=== PATIENT | female | born 2000 | race Caucasian/White ===

== ENCOUNTER 2020-01-26 04:22 | Day surgery (SDC) | payer BC, OTHER ==
[2020-01-26] VITALS (8 sets, daily range): BP systolic 85–109; BP diastolic 46–85
[~2020-01-26] VITALS: Ht 157.5 cm; Wt 43.0 kg
--- OUTSIDE RECORDS SUMMARY | 2020-01-26 04:33 | XMS REPORT | Continuity of Care Document ---
Author Author [facility] Organization [employer] Address Unknown Phone Unavailable Allergies There is no data. Medications There is no data. Problems There is no data. Procedures There is no data. Results There is no data. Encounters ACCT No. Visit Date/Time Discharge Status Pt. Type Provider Facility Loc./Unit Complaint [id number] 01/26/2020 04:29:[address] Emergency LORI GUTIERREZ, TAMIKO Mustafa [facility] ER VOMITING,ABD PAIN,BACK PAIN, FATIGUE,FEVER
[2020-01-26 05:39] LABS: BASOPHILS % (AUTO) 0 % (0-10); EOSINOPHILS % (AUTO) 0 % (0-10); HEMATOCRIT 42 % (35-52); HEMOGLOBIN 14.9 G/DL (11.5-16.0); LYMPHOCYTES # (AUTO) 1.3 X 10^3 (1.0-4.0); LYMPHOCYTES % (AUTO) 12 % (12-44); MEAN CORPUSCULAR HEMOGLOBIN 29 PG (25-34); MEAN CORPUSCULAR HGB CONC 35 G/DL (32-36); MEAN CORPUSCULAR VOLUME 83 FL (80-99); MEAN PLATELET VOLUME 11.4 FL (7.4-10.4); MONOCYTES # (AUTO) 0.3 X 10^3 (0.0-1.0); MONOCYTES % (AUTO) 3 % (0-12); NEUTROPHILS # (AUTO) 9.4 X 10^3 (1.8-7.8); NEUTROPHILS % (AUTO) 85 % (42-75); PLATELET COUNT 352 10^3/uL (130-400); WHITE BLOOD COUNT 11.1 10^3/uL (4.3-11.0)
[2020-01-26] MEDS ORDERED: LACTATED RINGERS 1,000 ML IV ONE ×3 (05:47→11:50)
--- NOTE | 2020-01-26 05:51 | ED Abdominal Pain ---
General Chief Complaint: Abdominal/GI Problems Stated Complaint: VOMITING,ABD PAIN,BACK PAIN,FATIGUE,FEVER Nursing Triage Note: PT AMBULATE TO ROOM 03 WITH C/O BACK PAIN, ABDOMINAL PAIN, FATIGUE, N/V X2 DAYS. Sepsis Screen: No Definite Risk Source of Information: Patient Exam Limitations: Intoxication (CONNIE ACUNA,MED STUDENT) History of Present Illness Date Seen by Provider: Jan 26, 2020 Time Seen by Provider: 04:35 Initial Comments 19 year old female presents to the ED complaining of back and stomach pain for 2 days. She is having generalized, crampy, lower abdominal pain that comes and goes.She has had diarrhea, and states that the pain improves somewhat after having a bowel movement. She took advil yesterday and states that it did not help. Today she has also had nausea and vomiting. LMP was 2 weeks ago. She denies fevers or urinary symptoms. Timing/Duration: 1-2 Days Severity/Quality: Moderate, Cramping Location: RLQ, LLQ, Suprapubic Associated Symptoms: Back Pain, Nausea/Vomiting (CONNIE ACUNA,MED STUDENT) Initial Comments Pt was turned over to us by Dr. Grubbs at 0700 shift change. Pt is a 19 y/o F here with diffuse, crampy, "pressure like" abd pain & distension x 2days which is accompanied by N/V (10 episodes, last @ 0400). States her pain improves with sitting up and also after having bowel movement. Reports she was seen at urgent care 2 days ago and had abd XR done and was told that she was constipated. States they told her to take Mg-Citrate & Ducolax. States over the past 2 days, she has taken 3x Mg-Citrate 10 Oz and 6x Ducolax 5mg. States she has been having multiple episodes of watery, "foamy" diarrhea since then. Denies any melena or hematochezia. Denies pain in her rectum or tenesmus. Also c/o associated diffuse, achy back pain, though she suspects it is due to her constantly hunching over 2/2 her abd pain. Per pt's mother, pt has a long hx of lymphadenopathy since she was 5y/o w/ one instance needing surgical excision of a particularly large lymph node near her carotid A. She has also received "infusions" and long-term abx for this in the past. Mother also reports pt has had ~6m/o of abd upset and pain since moving her from for school and starting Anxiolytic recently. Pt has hx of recurrent UTIs though denies any dysuria, burning w/ urination, frequency, hematuria, flank pain or any other urinary issues at this time. Pt is sexually active; denies any vaginal discharge, dysparunia, abnormal bleeding, or any other issues. Pt last ate (a piece of toast) at 0100 today. No further complaints at this time. Modifying Factors: Improves With Defecating; Worsens With Movement, Worsens With Palpation; Improves With Other (sitting up) Associated Symptoms: No Fever/Chills, No Swelling/Mass in Abdomen; Other (diarrhea, constipation, distension ) (ROBERTO ROBERTSON) Allergies and Home Medications Allergies Coded Allergies: No Known Allergies (Verified Allergy, Unknown, 01/26/20) Patient Home Medication List Home Medication List Reviewed: Yes (TAMIKO SANDOVAL MD) Review of Systems Review of Systems Constitutional: malaise EENTM: No Symptoms Reported Respiratory: No Symptoms Reported Cardiovascular: No Symptoms Reported Gastrointestinal: See HPI Genitourinary: See HPI Musculoskeletal: see HPI Skin: no symptoms reported Psychiatric/Neurological: No Symptoms Reported Endocrine: No Symptoms Reported Hematologic/Lymphatic: No Symptoms Reported (CONNIE ACUNA MED STUDENT) Past Edfqkue-Dbjpdl-Hrjndb Hx Patient Social History Alcohol Use: Denies Use Recreational Drug Use: No Smoking Status: Never a Smoker 2nd Hand Smoke Exposure: No Recent Foreign Travel: No Contact w/Someone Who Travel: No Recent Infectious Disease Expo: No Recent Hopitalizations: No Physical Abuse: No Sexual Abuse: No Mistreated: No Fear: No (CONNIE ACUNA MED STUDENT) Seasonal Allergies Seasonal Allergies: No (CONNIE ACUNA MED STUDENT) Past Medical History Surgeries: Yes (LEFT FOOT BUNION, BIOPSY ON NECK) Adenoidectomy, Tonsillectomy Respiratory: No Cardiac: No Neurological: No Genitourinary: No Gastrointestinal: No Musculoskeletal: No Endocrine: No HEENT: No Cancer: No Psychosocial: No Blood Disorders: No (CONNIE ACUNA MED STUDENT) Physical Exam Vital Signs Vital Signs - First Documented 01/26/20 05:22 Temp 36.6 Pulse 96 Resp 18 B/P (MAP) 134/99 (111) O2 Delivery Room Air (TAMIKO SANDOVAL MD) Vital Signs Capillary Refill : Less Than 3 Seconds (CONNIE ACUNA,MED STUDENT) Height/Weight/BMI Height: '" Weight: lbs. oz. kg; 17.00 BMI Method: General Appearance: no apparent distress, thin HEENT: PERRL/EOMI, pharynx normal, other (moist mucous membranes) Neck: normal inspection Respiratory: normal breath sounds, no respiratory distress, no accessory muscle use Cardiovascular: no murmur, tachycardia Gastrointestinal: soft, tenderness (diffuse, with percussion and palpation) Extremities: no pedal edema, normal capillary refill Back: other (tenderness bilaterally) Neurologic/Psychiatric: no motor/sensory deficits, alert, normal mood/affect, oriented x 3 Skin: normal color, warm/dry (CONNIE ACUNA,MED STUDENT) Gastrointestinal: normal bowel sounds, no pulsatile mass; No distended; guarding (minimal, voluntary); No rebound; other (dullness to percussion of abd diffusely worse on RUQ and RLQ) Back: normal inspection, no CVA tenderness, no vertebral tenderness, other (Back is diffusely tender, pt unable to localize pain, no midline tenderness, no paraspinal muscle hypertonisity) (ROBERTO ROBERTSON [facility]) Progress/Results/Core Measures Results/Orders Lab Results Laboratory Tests Test 01/26/20 05:16 01/26/20 08:40 Range/Units White Blood Count 11.1 H 4.3-11.0 10^3/uL Red Blood Count 5.07 4.35-5.85 10^6/uL Hemoglobin 14.9 11.5-16.0 G/DL Hematocrit 42 35-52 % Mean Corpuscular Volume 83 80-99 FL Mean Corpuscular Hemoglobin 29 25-34 PG Mean Corpuscular Hemoglobin Concent 35 32-36 G/DL Red Cell Distribution Width 13.3 10.0-14.5 % Platelet Count 352 130-400 10^3/uL Mean Platelet Volume 11.4 H 7.4-10.4 FL Neutrophils (%) (Auto) 85 H 42-75 % Lymphocytes (%) (Auto) 12 12-44 % Monocytes (%) (Auto) 3 0-12 % Eosinophils (%) (Auto) 0 0-10 % Basophils (%) (Auto) 0 0-10 % Neutrophils # (Auto) 9.4 H 1.8-7.8 X 10^3 Lymphocytes # (Auto) 1.3 1.0-4.0 X 10^3 Monocytes # (Auto) 0.3 0.0-1.0 X 10^3 Eosinophils # (Auto) 0.0 0.0-0.3 10^3/uL Basophils # (Auto) 0.0 0.0-0.1 10^3/uL Sodium Level 136 135-145 MMOL/L Potassium Level 3.8 3.6-5.0 MMOL/L Chloride Level 100 98-107 MMOL/L Carbon Dioxide Level 24 21-32 MMOL/L Anion Gap 12 5-14 MMOL/L Blood Urea Nitrogen 14 7-18 MG/DL Creatinine 0.95 0.60-1.30 MG/DL Estimat Glomerular Filtration Rate > 60 BUN/Creatinine Ratio 15 Glucose Level 126 H 70-105 MG/DL Calcium Level 9.9 8.5-10.1 MG/DL Corrected Calcium 8.5-10.1 MG/DL Total Bilirubin 0.6 0.1-1.0 MG/DL Aspartate Amino Transf (AST/SGOT) 17 5-34 U/L Alanine Aminotransferase (ALT/SGPT) 17 0-55 U/L Alkaline Phosphatase 107 40-136 U/L C-Reactive Protein High Sensitivity 0.21 0.00-0.50 MG/DL Total Protein 8.5 H 6.4-8.2 GM/DL Albumin 4.7 H 3.2-4.5 GM/DL Serum Test, Qualitative NEGATIVE NEGATIVE (TAMIKO SANDOVAL MD) My Orders Orders - TAMIKO SANDOVAL MD Cbc With Automated Diff (01/26/20 04:35) Comprehensive Metabolic Panel (01/26/20 04:35) Hs C Reactive Protein (01/26/20 04:35) Hcg,Qualitative Serum (01/26/20 04:35) Ua Culture If Indicated (01/26/20 04:35) Ed Iv/Invasive Line Start (01/26/20 04:35) Ondansetron Injection (Zofran Injectio (01/26/20 06:00) Famotidine Injection (Pepcid Injection) (01/26/20 06:00) Hyoscyamine Sl Tablet (Levsin Sl Tablet) (01/26/20 06:00) Lactated Ringers (Lr 1000 Ml Iv Solution (01/26/20 05:47) Ketorolac Injection (Toradol Injection) (01/26/20 06:15) (TAMIKO SANDOVAL MD) Medications Given in ED Current Medications Medications Dose Ordered Sig/Oni Route Start Time Stop Time Status Last Admin Dose Admin Famotidine 20 mg ONCE ONCE IVP 01/26/20 06:00 01/26/20 06:01 DC 01/26/20 06:00 20 MG Hyoscyamine Sulfate 0.25 mg ONCE ONCE PO 01/26/20 06:00 01/26/20 06:01 DC 01/26/20 06:00 0.25 MG Iohexol 100 ml ONCE ONCE IV 01/26/20 08:30 01/26/20 08:31 DC 01/26/20 08:36 75 ML Ketorolac Tromethamine 15 mg ONCE ONCE IVP 01/26/20 06:15 01/26/20 06:16 DC 01/26/20 06:53 15 MG Lactated Ringer's 1,000 ml @ 0 mls/hr Q0M ONCE IV 01/26/20 05:47 01/26/20 05:51 DC 01/26/20 06:00 999 MLS/HR Lactated Ringer's 1,000 ml @ 0 mls/hr Q0M ONCE IV 01/26/20 07:39 01/26/20 07:40 DC 01/26/20 07:45 1,000 MLS/HR Ondansetron HCl 8 mg ONCE ONCE IVP 01/26/20 06:00 01/26/20 06:01 DC 01/26/20 05:59 8 MG Sodium Chloride 100 ml ONCE ONCE IV 01/26/20 08:30 01/26/20 08:31 DC 01/26/20 08:36 80 ML (TAMIKO SANDOVAL MD) Vital Signs/I&O 01/26/20 05:22 Temp 36.6 Pulse 96 Resp 18 B/P (MAP) 134/99 (111) O2 Delivery Room Air (TAMIKO SANDOVAL MD) Blood Pressure Mean: 111 Progress Progress Note : Time: 07:27 Progress Note I have personally interviewed and examined this patient with Connie Acuna, MS 4. I agree with MS 4 documentation except where otherwise stated. Exam: Gen.: Alert, oriented, no acute distress HEENT: Normocephalic and atraumatic, mucous membranes moist Heart: Regular rate and rhythm without murmur Lungs: Clear to auscultation bilaterally with normal effort Abdomen: soft, diffusely tender even to percussion, normal bowel sounds Patient was treated with Zofran, Pepcid, and Levsin, and Toradol. She reports her pain is only improved from 9/10 to 8/10. She is receiving a liter of LR. Care of this patient is being transitioned to Dr. Post at this time. (TAMIKO SANDOVAL MD) Progress Note : Time: 07:24 Progress Note @07:24: Seen and evaluated pt. Pt continues to have pain at this time, rating it 7/10. 50MCG of fentanyl was ordered and administered during exam; pt reports her pain went down to 5/10 by the end of the exam. She has not been able to give us a urine sample, so another liter of LR was ordered. With her hx of Lymphadenopathy, after discussing the options with pt and her mother, a CTAB w/ contrast was ordered to rule out function/structural blockage of her bowels. Will continue to monitor. (ROBERTO ROBERTSON [facility]) Progress Note : Progress Note 0724: Assumed care of the patient from Dr. Grubbs. I have personally examined the patient and agree with above. Patient still with abdominal pain. Fentanyl 25 g IV ordered. 0804: I have reexamined the patient began and discussed the case with the patient and her mother. Patient still with a moderate amount of pain that is diffuse with some guarding. We will get CT abdomen and pelvis with IV contrast due to history of various episodes of lymphadenopathy as well as the persistent abdominal pain. Fentanyl 50 g IV ordered. 0920: Patient has completed CT scan which was reviewed by me as well as Dr. Dykes. Patient still with persistent pain and now has nausea. Fentanyl 50 g IV ordered and Zofran [address] Dykes will see the patient in the emergency department. Currently pending radiology read of CT scan. UA pending. Patient did have repeat 1 L bolus of LR. Monitor patient. 1020: Patient informed of CT results. Pending surgeon evaluation. She is much more comfortable currently after last dose of pain medicine. 1136: Dr. Dykes has seen the patient in the emergency department and she will go to the OR for colonoscopy and he will admit or discharge from there depending on findings. Patient and family agree with plan. (DANAY POST MD) Diagnostic Imaging Diagonstic Imaging: CT Plain Films/CT/US/NM/MRI: abdomen, pelvis Comments NAME: SERGIO ALCARAZ [facility] REC#: [id number] PT STATUS: REG ER : 2000 PHYSICIAN: DANAY POST MD ADMIT DATE: 01/26/20/ER Draft Date of Exam:01/26/20 CT ABDOMEN/PELVIS W PROCEDURE: CT abdomen and pelvis with contrast. TECHNIQUE: Multiple contiguous axial images were obtained through the abdomen and pelvis after administration of intravenous contrast. Auto Exposure Controls were utilized during the CT exam to meet ALARA standards for radiation dose reduction. DATE: January 26, 2020. COMPARISON: None. INDICATION: 19-year-old female, abdominal pain, fatigue, nausea, and vomiting. FINDINGS: There is a 2 mm noncalcified left lower lobe pulmonary nodule on axial image 11. Visualized lung bases are otherwise clear. The heart is not enlarged. There is no pericardial effusion. The liver is unremarkable in size and contour. There is no identified liver lesion. The main, right, and left portal veins are patent. The gallbladder is unremarkable. There is no intrahepatic or extrahepatic bile duct dilation. The main pancreatic duct is not abnormally dilated. Unremarkable appearance of the pancreatic parenchyma. The spleen is normal in size. The adrenal glands are unremarkable. Unremarkable appearance of the renal parenchyma. The urinary collecting systems are not distended. There is no identified renal or ureteral stone. The urinary bladder is unremarkable. The transverse colon and right colon are fluid-filled and mildly distended. There is a fluid-filled cecum which is distended up to approximately 3.8 cm in diameter. There are fluid-filled mildly dilated segments of distal small bowel measuring up to approximately 2.1 cm in diameter. There is a tubular structure in the right lower quadrant on axial image 47 and coronal image 25 which could relate to the appendix. If this relates to the appendix, there is no evidence of acute appendicitis. There is no free intraperitoneal air. There is no drainable fluid collection. There is a very small volume free pelvic fluid. There is no identified abnormally enlarged lymph node in the abdomen or pelvis which meets CT size criteria for adenopathy. There is swirling of the mesenteric vasculature perhaps best illustrated on axial image 34 and adjacent sequential images. There are areas of probable abnormal small bowel wall thickening. There is no pneumatosis. There is some mild mesenteric stranding. There is no identified acute bony abnormality. There is transitional lumbosacral anatomy. IMPRESSION: CT ABDOMEN AND PELVIS. 1. Swirling of the mesenteric vasculature and mesenteric stranding without convincing evidence of volvulus or bowel obstruction. 2. Nonspecific fluid-filled mildly dilated segments of distal small bowel, right colon, and transverse colon. 3. Probable mild small bowel wall thickening which is nonspecific and could relate to a nonspecific enteritis. 4. Very small volume free pelvic fluid. Dictated on workstation # [id number] Dict: 01/26/20 0838 Trans: 01/26/20 1013 [facility] [id number] Interpreted by: KATERINA FOSTER MD Electronically signed by: (DANAY POST MD) Departure Communication (Admissions) Time/Spoke to Admitting Phy: 10:15 (DANAY POST MD) Impression Primary Impression: Diffuse abdominal pain Disposition: 09 ADMITTED INPATIENT Condition: Stable Admissions Decision to Admit Reason: Admit from ER (General) Decision to Admit/Date: Jan 26, 2020 Time/Decision to Admit Time: 10:15 (DANAY POST MD) Departure-Patient Inst. Referrals: NO,LOCAL PHYSICIAN (PCP/Family) Primary Care Physician CONNIE ACUNA MED STUDENT Jan 26, 2020 05:51 TAMIKO SANDOVAL MD Jan 26, 2020 07:30 ROBERTO ROBERTSON STUDEMETA Jan 26, 2020 08:25 DANAY POST MD Jan 26, 2020 09:24
[2020-01-26] MEDS ORDERED: ONDANSETRON 4 MG/2 ML (SDV) Z0FRAN IVP ONE ×2 (06:00→09:00)
[2020-01-26] MEDS ORDERED: HYOSCYAMINE 0.125 MG (LEVSIN) TAB PO ONE (06:00)
[2020-01-26] MEDS ORDERED: FAMOTIDINE 20MG/2ML IV (PEPCID) IVP ONE (06:00)
[2020-01-26] MEDS ORDERED: KETOROLAC 30 MG/ML VIAL IVP ONE (06:15)
[2020-01-26 06:19] LABS: ALBUMIN 4.7 GM/DL (3.2-4.5)
[2020-01-26 06:20] LABS: CHLORIDE 100 MMOL/L (98-107); POTASSIUM 3.8 MMOL/L (3.6-5.0); SODIUM 136 MMOL/L (135-145)
[2020-01-26 06:21] LABS: CALCIUM 9.9 MG/DL (8.5-10.1)
[2020-01-26 06:22] LABS: GLUCOSE 126 MG/DL (70-105); TOTAL PROTEIN 8.5 GM/DL (6.4-8.2)
[2020-01-26 06:23] LABS: CARBON DIOXIDE 24 MMOL/L (21-32)
[2020-01-26 06:24] LABS: BILIRUBIN,TOTAL 0.6 MG/DL (0.1-1.0)
[2020-01-26 06:25] LABS: ALKALINE PHOSPHATASE 107 U/L (40-136)
[2020-01-26 06:26] LABS: CREATININE SERUM 0.95 MG/DL (0.60-1.30); GFR ESTIMATED > 60
[2020-01-26 06:27] LABS: BUN/CREATININE RATIO 15
[2020-01-26 06:29] LABS: ALANINE AMINOTRANSFERASE 17 U/L (0-55)
--- NOTE | 2020-01-26 07:20 | NUR ---
PT STATES HER BACK IS STILL HURTING. BOTH DR'S NOTIFIED.
[2020-01-26] MEDS ORDERED: fentaNYL INJECTION 100 MCG/2 ML AMP IVP STA ×4 (07:22→11:41)
--- NOTE | 2020-01-26 07:25 | NUR ---
TALKED WITH PT'S MOTHER WITH PT'S PERMISSION.
[2020-01-26] MEDS ORDERED: HOLD METFORMIN - RECEIVED CONTRAST 20 ML VIAL IV SCH (08:30)
[2020-01-26] MEDS ORDERED: NS 100 ML (IVPB) BAG IV ONE (08:30)
[2020-01-26] MEDS ORDERED: IOHEXOL 350 MG/ML 100 ML (OMNIPAQUE 350) VIAL IV ONE (08:30)
--- NOTE | 2020-01-26 08:36 | NUR ---
PT'S MOTHER NOTIFIED THAT HAS ORDERED A CT.
[2020-01-26 08:48] LABS: BILIRUBIN,URINE NEGATIVE (NEGATIVE); CLARITY,URINE CLEAR; COLOR,URINE YELLOW; GLUCOSE, URINE (UA) NEGATIVE (NEGATIVE); KETONES,URINE NEGATIVE (NEGATIVE); LEUKOCYTE ESTERASE ,URINE NEGATIVE (NEGATIVE); NITRITE,URINE NEGATIVE (NEGATIVE); PROTEIN,URINE TRACE (NEGATIVE)
--- NOTE | 2020-01-26 08:57 | NUR ---
CONT PULSE OX PLACED DUE TO MULTIPLE DOSES OF FENTENYL GIVEN.
[2020-01-26 09:22] LABS: BACTERIA,URINE MODERATE /HPF
--- NOTE | 2020-01-26 10:10 | NUR ---
RESTING IN BED WITH EYES CLOSED.
--- NOTE | 2020-01-26 10:14 | Diagnostic Imaging Report ---
PROCEDURE: CT abdomen and pelvis with contrast. TECHNIQUE: Multiple contiguous axial images were obtained through the abdomen and pelvis after administration of intravenous contrast. Auto Exposure Controls were utilized during the CT exam to meet ALARA standards for radiation dose reduction. DATE: January 26, 2020. COMPARISON: None. INDICATION: 19-year-old female, abdominal pain, fatigue, nausea, and vomiting. FINDINGS: There is a 2 mm noncalcified left lower lobe pulmonary nodule on axial image 11. Visualized lung bases are otherwise clear. The heart is not enlarged. There is no pericardial effusion. The liver is unremarkable in size and contour. There is no identified liver lesion. The main, right, and left portal veins are patent. The gallbladder is unremarkable. There is no intrahepatic or extrahepatic bile duct dilation. The main pancreatic duct is not abnormally dilated. Unremarkable appearance of the pancreatic parenchyma. The spleen is normal in size. The adrenal glands are unremarkable. Unremarkable appearance of the renal parenchyma. The urinary collecting systems are not distended. There is no identified renal or ureteral stone. The urinary bladder is unremarkable. The transverse colon and right colon are fluid-filled and mildly distended. There is a fluid-filled cecum which is distended up to approximately 3.8 cm in diameter. There are fluid-filled mildly dilated segments of distal small bowel measuring up to approximately 2.1 cm in diameter. There is a tubular structure in the right lower quadrant on axial image 47 and coronal image 25 which could relate to the appendix. If this relates to the appendix, there is no evidence of acute appendicitis. There is no free intraperitoneal air. There is no drainable fluid collection. There is a very small volume free pelvic fluid. There is no identified abnormally enlarged lymph node in the abdomen or pelvis which meets CT size criteria for adenopathy. There is swirling of the mesenteric vasculature perhaps best illustrated on axial image 34 and adjacent sequential images. There are areas of probable abnormal small bowel wall thickening. There is no pneumatosis. There is some mild mesenteric stranding. There is no identified acute bony abnormality. There is transitional lumbosacral anatomy. IMPRESSION: CT ABDOMEN AND PELVIS. 1. Swirling of the mesenteric vasculature and mesenteric stranding without convincing evidence of volvulus or bowel obstruction. 2. Nonspecific fluid-filled mildly dilated segments of distal small bowel, right colon, and transverse colon. 3. Probable mild small bowel wall thickening which is nonspecific and could relate to a nonspecific enteritis. 4. Very small volume free pelvic fluid. Dictated by: Dictated on workstation # [id number]
--- NOTE | 2020-01-26 10:17 | NUR ---
IN ROOM AT THIS TIME.
--- NOTE | 2020-01-26 10:17 | NUR ---
TALKED WITH PT'S MOM ON THE PHONE
--- NOTE | 2020-01-26 10:23 | NUR ---
HAS SPOKEN WITH PT'S MOM. PLAN IS TO WAIT FOR DR MONTALVO TO COME SEE HER.
--- NOTE | 2020-01-26 11:04 | NUR ---
DR MONTALVO IN THE ROOM WITH THE PT AT THIS TIME.
--- NOTE | 2020-01-26 11:17 | NUR ---
PT'S MOM BROUGHT IN TO HELP PT DECIDE ON SURGERY OPTIONS.
[2020-01-26] MEDS ORDERED: ESCI10TA55 (11:22)
[2020-01-26] MEDS ORDERED: OMEP20CA18 (11:22)
[2020-01-26] MEDS ORDERED: NORG1TAB14 (11:22)
--- NOTE | 2020-01-26 11:22 | Consultation - Surgery ---
History of Present Illness History of Present Illness Patient Consulted On(maksim/time) 01/26/20 11:16 Time Seen by Provider: 11:01 History of Present Illness Surgery asked to consult regarding abdominal pain. HPI per ER: 19 year old female presents to the ED complaining of back and stomach pain for 2 days. She is having generalized, crampy, lower abdominal pain that comes and goes.She has had diarrhea, and states that the pain improves somewhat after having a bowel movement. She took advil yesterday and states that it did not help. Today she has also had nausea and vomiting. LMP was 2 weeks ago. She denies fevers or urinary symptoms. Timing/Duration: 1-2 Days Severity/Quality: Moderate, Cramping Location: RLQ, LLQ, Suprapubic Associated Symptoms: Back Pain, Nausea/Vomiting Pt was turned over to us by Dr. Grubbs at 0700 shift change. Pt is a 19 y/o F here with diffuse, crampy, "pressure like" abd pain & distension x 2days which is accompanied by N/V (10 episodes, last @ 0400). States her pain improves with sitting up and also after having bowel movement. Reports she was seen at urgent care 2 days ago and had abd XR done and was told that she was constipated. States they told her to take Mg-Citrate & Ducolax. States over the past 2 days, she has taken 3x Mg-Citrate 10 Oz and 6x Ducolax 5mg. States she has been having multiple episodes of watery, "foamy" diarrhea since then. Denies any melena or hematochezia. Denies pain in her rectum or tenesmus. Also c/o associated diffuse, achy back pain, though she suspects it is due to her constantly hunching over 2/2 her abd pain. Per pt's mother, pt has a long hx of lymphadenopathy since she was 5y/o w/ one instance needing surgical excision of a particularly large lymph node near her carotid A. She has also received "infusions" and shelter abx for this in the past. Mother also reports pt has had ~6m/o of abd upset and pain since moving her from for school and starting Anxiolytic recently. Pt has hx of recurrent UTIs though denies any dysuria, burning w/ urination, frequency, hematuria, flank pain or any other urinary issues at this time. Pt is sexually active; denies any vaginal discharge, dysparunia, abnormal bleeding, or any other issues. Pt last ate (a piece of toast) at 0100 today. No further complaints at this time. When I spoke with pt she stated she had never had pain like this before, nothing makes pain better; except finally the third dose of Fentanyl. Allergies and Home Medications Allergies Coded Allergies: No Known Allergies (Verified Allergy, Unknown, 01/26/20) Patient Home Medication List Home Medication List Reviewed: Yes Past Lzhepsb-Rwxtqx-Ktufnh Hx Patient Social History Alcohol Use: Denies Use Recreational Drug Use: No Smoking Status: Never a Smoker 2nd Hand Smoke Exposure: No Recent Foreign Travel: No Contact w/Someone Who Travel: No Recent Infectious Disease Expo: No Recent Hopitalizations: No Seasonal Allergies Seasonal Allergies: No Surgeries History of Surgeries: Yes (LEFT FOOT BUNION, BIOPSY ON NECK) Surgeries: Adenoidectomy, Tonsillectomy Respiratory History of Respiratory Disorde: No Cardiovascular History of Cardiac Disorders: No Neurological History of Neurological Disord: No Genitourinary History of Genitourinary Disor: No Gastrointestinal History of Gastrointestinal Di: No Musculoskeletal History of Musculoskeletal Dis: No Endocrine History of Endocrine Disorders: No HEENT History of HEENT Disorders: No Cancer History of Cancer: No Psychosocial History of Psychiatric Problem: No Blood Transfusions History of Blood Disorders: No Family Medical History Significant Family History: Hypertension (both parents) Review of Systems-General Constitutional: malaise, weakness EENTM: No blurred vision, No double vision, No mouth pain, No mouth swelling, No epistaxis Respiratory: No cough, No dyspnea on exertion, No short of breath Cardiovascular: No chest pain, No palpitations Gastrointestinal: abdominal pain, diarrhea; No melena; nausea, vomiting Genitourinary: No dysuria, No frequency, No hematuria Musculoskeletal: No joint pain, No joint swelling, No muscle pain, No muscle stiffness, No muscle cramps Skin: No change in color, No change in hair/nails Psychiatric/Neurological: Anxiety, Depressed; Denies Seizure, Denies Tremors Other pt denies any hx of abnormal bleeding or bruising Physical Exam-General Problems Physical Exam Vital Signs Vital Signs - First Documented 01/26/20 05:22 Temp 36.6 Pulse 96 Resp 18 B/P (MAP) 134/99 (111) O2 Delivery Room Air Capillary Refill : Less Than 3 Seconds General Appearance: mild distress Eyes: Bilateral Eye PERRL, Bilateral Eye EOMI HEENT: pharynx normal; No scleral icterus (R), No scleral icterus (L) Neck: non-tender, full range of motion, supple, normal inspection Respiratory: lungs clear, normal breath sounds, no respiratory distress, no accessory muscle use Cardiovascular: regular rate, rhythm, no murmur Gastrointestinal: soft, no organomegaly; No distended, No guarding; tenderness (diffusely with palpation, but states left hurts worse) Back: no CVA tenderness, no vertebral tenderness Extremities: normal range of motion, non-tender, normal inspection, no pedal edema, no calf tenderness 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, no motor/sensory deficits, alert, normal mood/affect, oriented x 3 Skin: normal color, warm/dry Lymphatic: no adenopathy (neck, axilla or groin) Data Review Labs Laboratory Tests 01/26/20 05:16: White Blood Count 11.1H, Red Blood Count 5.07, Hemoglobin 14.9, Hematocrit 42, Mean Corpuscular Volume 83, Mean Corpuscular Hemoglobin 29, Mean Corpuscular Hemoglobin Concent 35, Red Cell Distribution Width 13.3, Platelet Count 352, M kathe Platelet Volume 11.4H, Neutrophils (%) (Auto) 85H, Lymphocytes (%) (Auto) 12, Monocytes (%) (Auto) 3, Eosinophils (%) (Auto) 0, Basophils (%) (Auto) 0, Neutrophils # (Auto) 9.4H, Lymphocytes # (Auto) 1.3, Monocytes # (Auto) 0.3, Eosinophils # (Auto) 0.0, Basophils # (Auto) 0.0, Sodium Level 136, Potassium Level 3.8, Chloride Level 100, Carbon Dioxide Level 24, Anion Gap 12, Blood Urea Nitrogen 14, Creatinine 0.95, Estimat Glomerular Filtration Rate > 60, BUN/Creatinine Ratio 15, Glucose Level 126H, Calcium Level 9.9, Corrected Calcium , Total Bilirubin 0.6, Aspartate Amino Transf (AST/SGOT) 17, Alanine Aminotransferase (ALT/SGPT) 17, Alkaline Phosphatase 107, C-Reactive Protein High Sensitivity 0.21, Total Protein 8.5H, Albumin 4.7H, Serum Test, Qualitative NEGATIVE 01/26/20 08:40: Urine Color YELLOW, Urine Clarity CLEAR, Urine pH 7.0, Urine Specific Magazine 1.020, Urine Protein TRACEH, Urine Glucose (UA) NEGATIVE, Urine Ketones NEGATIVE, Urine Nitrite NEGATIVE, Urine Bilirubin NEGATIVE, Urine Urobilinogen 0.2, Urine Leukocyte Esterase NEGATIVE, Urine RBC (Auto) 1+H, Urine RBC NONE, Urine WBC 10-25H, Urine Squamous Epithelial Cells 10-25H, Urine Crystals NONE, Urine Bacteria MODERATEH, Urine Casts NONE, Urine Mucus SMALLH, Urine Culture Indicated YES Radiology Date of Exam:01/26/20 CT ABDOMEN/PELVIS W PROCEDURE: CT abdomen and pelvis with contrast. TECHNIQUE: Multiple contiguous axial images were obtained through the abdomen and pelvis after administration of intravenous contrast. Auto Exposure Controls were utilized during the CT exam to meet ALARA standards for radiation dose reduction. DATE: January 26, 2020. COMPARISON: None. INDICATION: 19-year-old female, abdominal pain, fatigue, nausea, and vomiting. FINDINGS: There is a 2 mm noncalcified left lower lobe pulmonary nodule on axial image 11. Visualized lung bases are otherwise clear. The heart is not enlarged. There is no pericardial effusion. The liver is unremarkable in size and contour. There is no identified liver lesion. The main, right, and left portal veins are patent. The gallbladder is unremarkable. There is no intrahepatic or extrahepatic bile duct dilation. The main pancreatic duct is not abnormally dilated. Unremarkable appearance of the pancreatic parenchyma. The spleen is normal in size. The adrenal glands are unremarkable. Unremarkable appearance of the renal parenchyma. The urinary collecting systems are not distended. There is no identified renal or ureteral stone. The urinary bladder is unremarkable. The transverse colon and right colon are fluid-filled and mildly distended. There is a fluid-filled cecum which is distended up to approximately 3.8 cm in diameter. There are fluid-filled mildly dilated segments of distal small bowel measuring up to approximately 2.1 cm in diameter. There is a tubular structure in the right lower quadrant on axial image 47 and coronal image 25 which could relate to the appendix. If this relates to the appendix, there is no evidence of acute appendicitis. There is no free intraperitoneal air. There is no drainable fluid collection. There is a very small volume free pelvic fluid. There is no identified abnormally enlarged lymph node in the abdomen or pelvis which meets CT size criteria for adenopathy. There is swirling of the mesenteric vasculature perhaps best illustrated on axial image 34 and adjacent sequential images. There are areas of probable abnormal small bowel wall thickening. There is no pneumatosis. There is some mild mesenteric stranding. There is no identified acute bony abnormality. There is transitional lumbosacral anatomy. IMPRESSION: CT ABDOMEN AND PELVIS. 1. Swirling of the mesenteric vasculature and mesenteric stranding without convincing evidence of volvulus or bowel obstruction. 2. Nonspecific fluid-filled mildly dilated segments of distal small bowel, right colon, and transverse colon. 3. Probable mild small bowel wall thickening which is nonspecific and could relate to a nonspecific enteritis. 4. Very small volume free pelvic fluid. Dictated by: Dictated on workstation # [id number] Assessment/Plan Assessment/Plan Assessment/Plan Abdominal pain PSBO - large bowel vs ileus ?Volvulus I talked with pt and her parents; gave them 4 options, go home, be admitted to be observed, colonoscopy and diagnostic laparoscopy. Pt basically already did a bowel prep yesterday and therefore should be clean. She may have an ileus or volvulous; which may be helped by Colonoscopy. Can see area of bowel decompression, hopefully suction out fluid and possibly untwist volvulous if there is one. They decided to do the colonoscopy; she may be able to go home after that, may be admitted for observation or may go to the OR. We went over risks and complications of colonosocpy; not limited to pain, bleeding, infection, intestinal perforation and need for further procedure. all questions answered to their satisfaction. Will get consent and take pt to endo. FERNANDO MONTALVO DO Jan 26, 2020 11:21
--- OUTSIDE RECORDS SUMMARY | 2020-01-26 11:42 | XMS REPORT | Continuity of Care Document ---
Author Author [facility] Organization [facility] [employer] Address Unknown Phone Unavailable Allergies There is no data. Medications There is no data. Problems There is no data. Procedures There is no data. Results There is no data. Encounters ACCT No. Visit Date/Time Discharge Status Pt. Type Provider Facility Loc./Unit Complaint [id number] 01/26/2020 11:38:[address] Outpatient FERNANDO MONTALVO DO [facility] COLONOSCOPY
[2020-01-26] MEDS ORDERED: MIDAZOLAM 2 MG/2 ML (VERSED) VIAL ONE (11:46)
[2020-01-26] MEDS ORDERED: PROPOFOL INJECTION 50 ML IV ONE (11:46)
--- NOTE | 2020-01-26 11:50 | NUR ---
TO ENDO WITH ENDO CREW. Addendum: 01/26/20 at 1155 by NSNYDER PLAN IS FOR PT TO COME BACK TO ER AFTER PROCEDURE IS DONE.
[2020-01-26] MEDS ORDERED: LACTATED RINGERS 1,000 ML IV STA (12:09)
--- NOTE | 2020-01-26 12:27 | Anesthesia-General Post-Op ---
MAC Patient Condition Mental Status/LOC: Same as Preop Cardiovascular: Satisfactory Nausea/Vomiting: Absent Respiratory: Satisfactory Pain: Controlled Complications: Absent Post Op Complications Complications None Follow Up Care/Instructions Patient Instructions None needed. Anesthesiology Discharge Order Discharge Order Patient is doing well, no complaints, stable vital signs, no apparent adverse anesthesia problems. No complications reported per nursing. ELI AZUL CRNA Jan 26, 2020 12:27
--- NOTE | 2020-01-26 12:30 | NUR ---
Shirley nielson in [facility] - 01/26/20 at [address] MONTALVO HERE TALKING TO THE PT.
--- NOTE | 2020-01-26 12:30 | NUR ---
DR MONTALVO IN TALKING TO THE MOTHER AT THIS TIME.
--- NOTE | 2020-01-26 12:39 | NUR ---
DESCISION MADE FOR THE PT TO GO TO THE FLOOR AFTER ENDO. HANDMADE TILE ARTIST NOTIFIED.
--- NOTE | 2020-01-26 13:55 | Progress Note-Post Operative ---
Post-Operative Progess Note Surgeon (s)/Director Hospice Operations (s) Surgeon FERNANDO MONTALVO DO Director Hospice Operations: MARCIN Sawyer Pre-Operative Diagnosis Abd pain, Ileus vs PBO vs Vovulous Post-Operative Diagnosis possible volvulous vs ileus Procedure & Operative Findings Date of Procedure 01/26/20 Procedure Performed/Findings colonoscopy Anesthesia Type IV sedation by TRANS ROUTER Estimated Blood Loss Estimated blood loss (mL): none Specimens/Packing Specimens Removed none FERNANDO MONTALVO DO Jan 26, 2020 13:55
--- NOTE | 2020-01-26 13:58 | Endoscopy Discharge Instruct ---
Endo Procedure/Findings Findings 1.: Other Findings (??volvulous) Discharge Instructions - Activity: You might feel a little sleepy until tomorrow. This is due to the medicine you received to relax you. Until tomorrow, you should: NOT drive a car, operate machinery or power tools. NOT drink any alcoholic beverages. NOT make any important decisions or sign importortant papers. Do not return to work until tomorrow, unless otherwise instructed. Resume previous activities tomorrow. Diet: Start by taking liquids. If you tolerate liquids, advance to solid food. Make an appointment for one week. 1.: Low Residue Diet, Other Recommendation (increase fluids) Notify Physician - If you experience excessive bleeding, unusual abdominal pain, fever, or chest pain, contact your doctor immediately. FERNANDO MONTALVO DO Jan 26, 2020 13:58
--- NOTE | 2020-01-26 14:00 | NUR ---
PT REQUESTED TO GO HOME. SHE HAD VOIDED TWICE, DRINKING WATER AND WALKING ON HER OWN. DR MONTALVO VISITED HER BEFORE SHE LEFT. STAFF TOOK HER TO ER EXT WITH MOTHER
--- NOTE | 2020-01-26 21:17 | OPERATIVE REPORT ---
DATE OF SERVICE: PREOPERATIVE DIAGNOSIS: Abdominal pain, ileus versus partial bowel obstruction versus volvulus. POSTOPERATIVE DIAGNOSIS: Possible volvulus versus ileus. SURGEON: Zion Dykes DO TRADING FLOOR OPERATOR: Caesar Tyson MS3. PROCEDURE: Colonoscopy. ANESTHESIA: IV sedation by the SENIOR RESEARCH ASSOCIATE. SPECIMENS: None. BLOOD LOSS: None. FLUIDS: Per anesthesia. POSTOPERATIVE CONDITION: Stable. INDICATION FOR PROCEDURE: The patient is a 19-year-old female who is having abdominal pain, had a CAT scan, which showed large amount of fluid in the right colon, but a very decompressed left colon with questionable swelling, possible could not rule out possible volvulus per the radiology reading. FINDINGS: The patient had some very decompressed bowel, may have been twisted it was hard to tell. Once we were all the way out, looked like it had improved. PROCEDURE NOTE: After informed consent was obtained, the patient was brought to the endoscopy suite, placed in bed in left lateral decubitus position. She was administered IV sedation by the SENIOR RESEARCH ASSOCIATE who then monitored vitals the entire time, heart rate, blood pressure and pulse ox. A scope was inserted. Upon pushed into the rectum and then pushed up through the sigmoid and descending colon throughout here was very decompressed colon; moved slowly, insufflated with air, almost felt like there was some twists and once we had fully open and then we were able to get into what looked like the top portion of the descending colon and right into the transverse colon. Continued pushing, there was some liquid fecal material, able to suction all this up and then able to get all the way to the cecum, took a picture of appendiceal orifice, noted the ileocecal valve and then slowly withdrew the scope insufflating the circumferential york looking the cecum, up the ascending colon to the hepatic flexure, then down the transverse colon to the splenic flexure, into the descending colon and then down through here into the sigmoid. Through here, saw some mucus, but did not see any inflammation, ulcer, or any type of colitis. This side was open with air and believes cannot go through and continued down into the rectum, retroflexed the rectal vault, saw some very minimal internal hemorrhoids. No other obvious pathology. The patient tolerated the procedure. Scope was removed. Job ID: [id number] DocumentID: [id number] Dictated Date: 01/26/2020 13:54:32 [employer] Date: 01/26/2020 21:16:45 Dictated By: DO HARISH WILLAMS
== END 2020-01-26 14:00 | disposition home or self-care (01) ==
LOC: ER 04:29 → SDC 11:38 → 4TH 13:14 → SDC 14:00
PROVIDERS: ATTEND Surgery
DX: R10.9 Unspecified abdominal pain (principal); K63.89 Other specified diseases of intestine; F41.9 Anxiety disorder, unspecified; Z79.899 Other long term (current) drug therapy; Z20.828 Contact with and (suspected) exposure to other viral communicable diseases
CPT/HCPCS: 45378; 74177; 80053; 81000; 84703; 85025; 86141; 87088; 96361; 96374; 96375; 96376; 99284; U0002; 36415; 87635